=== PATIENT | female | born 1970 | race Caucasian/White ===

== ENCOUNTER → 2017-09-01 | Outpatient (CLI) | payer OTHER ==
[~2017-09-01] MED LIST: AC500T; AZIT-21; CLIN300C3 PO; DIPH50CA; HYDR473S16 PO; IBP800T; MEDROL DOSE PACK
--- NOTE | 2017-09-01 12:12 | Diagnostic Imaging Report ---
PROCEDURE: CT head and CT cervical spine without contrast. TECHNIQUE: Multiple contiguous axial images were obtained through the brain and cervical spine without the use of intravenous contrast. Sagittal and coronal reformations through the cervical spine were then performed. INDICATION: Fall approximately two weeks ago, complaining of dizziness and headache as well as right-sided neck numbness and pain. FINDINGS: CT head: The ventricles and sulci are within normal limits. No sulcal effacement, midline shift, or hemorrhage is detected. Cisterns are patent. The visualized paranasal sinuses are clear. IMPRESSION: No acute intracranial process is detected. CT cervical spine: Curvature and alignment of the cervical spine is normal. Disc spaces are well maintained. No fractures are seen. The odontoid is intact. IMPRESSION: No acute bony abnormality is detected. Results were called to Dr. Mcnamara's office prior to this dictation. Dictated by: Dictated on workstation # [id number]
== END ==
LOC: RAD 11:29
PROVIDERS: ATTEND Family Medicine
DX: S09.90XA Unspecified injury of head, initial encounter (principal); S19.9XXA Unspecified injury of neck, initial encounter; W19.XXXA Unspecified fall, initial encounter
CPT/HCPCS: 70450; 72125

== ENCOUNTER → 2019-04-24 | Outpatient (CLI) | payer OTHER ==
--- NOTE | 2019-04-25 12:00 | Diagnostic Imaging Report ---
EXAMINATION: Digital mammogram bilateral screening. INDICATION: Screening. This study was compared to the prior exams of 12/29/2014 and 11/02/2012. At this time, there are no current complaints. The current study was also evaluated with a Computer Aided Detection (CAD) system. 3-D tomosynthesis was also performed and reviewed. FINDINGS: There are scattered fibroglandular densities in both breasts which could obscure a lesion. When compared to the prior study, there has been no significant change. There is no primary or secondary sign of malignancy noted. The 3D tomographic views also fail to show any sign of malignancy. IMPRESSION: 1. There is no evidence of malignancy. 2. The patient should have her annual bilateral screening mammogram on schedule in April 2020. ACR BI-RADS Category 1: Negative. Result letter will be mailed to the patient. Note: At least 10% of breast cancer is not imaged by mammography. Dictated by: Dictated on workstation # [id number]
== END ==
LOC: RAD 13:37
PROVIDERS: ATTEND Nurse Practitioner
DX: Z12.31 Encounter for screening mammogram for malignant neoplasm of breast (principal)
CPT/HCPCS: 77067

== ENCOUNTER → 2019-09-18 | Outpatient (CLI) | payer OTHER | LOC: LAB 08:01 | PROVIDERS: ATTEND Emergency Medicine | DX: R09.81 Nasal congestion (principal); Z20.828 Contact with and (suspected) exposure to other viral communicable diseases | CPT/HCPCS: 87635 ==

== ENCOUNTER → 2019-09-20 | Outpatient (CLI) | payer OTHER | LOC: LAB 15:28 | PROVIDERS: ATTEND Emergency Medicine | DX: U07.1 COVID-19 (principal) | CPT/HCPCS: 87635 ==

== ENCOUNTER → 2020-05-02 | Outpatient (CLI) | payer OTHER ==
--- NOTE | 2020-05-02 13:17 | Diagnostic Imaging Report ---
INDICATION: Pain after a fall, swelling. EXAMINATION: Left foot from 05/02/2020 FINDINGS: 3 views of the foot There is a fracture of the distal 5th metatarsal nondisplaced in appearance. No definite intra-articular involvement is seen. The remaining osseous structures are intact. IMPRESSION: 1. 5th metatarsal fracture. Dictated by: Dictated on workstation # [id number]
--- NOTE | 2020-05-02 13:18 | Diagnostic Imaging Report ---
INDICATION: Fall, pain and swelling EXAMINATION: Left ankle from 05/02/2020 FINDINGS: 3 views of the ankle. There is soft tissue swelling laterally. No displaced fractures or dislocations. Ankle mortise and talar dome intact. IMPRESSION: 1. Soft tissue swelling. No acute osseous abnormality. Dictated by: Dictated on workstation # [id number]
== END ==
LOC: RAD 11:02
PROVIDERS: ATTEND Family Medicine
DX: S92.355A Nondisplaced fracture of fifth metatarsal bone, left foot, initial encounter for closed fracture (principal); W19.XXXA Unspecified fall, initial encounter
CPT/HCPCS: 73610; 73630

== ENCOUNTER → 2020-09-29 | Outpatient (CLI) | payer OTHER ==
--- NOTE | 2020-09-29 13:16 | Diagnostic Imaging Report ---
Indication: Low back pain. Findings: Lumbar statures are within normal limits. The alignment is anatomic. The disc space is maintained. There is some lower lumbar facet arthrosis, chronic. No fracture detected. Impression: Mild degenerative changes to the lower lumbar facets, spine aligned anatomically with no acute-appearing pathology. Dictated by: Dictated on workstation # [id number]
--- NOTE | 2020-09-29 13:16 | Diagnostic Imaging Report ---
INDICATION: Left hip pain FINDINGS: 2 view left hip showed no avulsion or other fracture pattern. No articular irregularity. No fracture dislocation in the pelvic ring and symphysis as well as left SI joint unremarkable. IMPRESSION: Unremarkable 2 view left hip. Dictated by: Dictated on workstation # [id number]
== END ==
LOC: RAD 12:27
PROVIDERS: ATTEND Family Medicine
DX: M47.816 Spondylosis without myelopathy or radiculopathy, lumbar region (principal)
CPT/HCPCS: 72100; 73502